=== PATIENT | female | born 1955 | race Caucasian/White ===

== ENCOUNTER 2019-08-04 13:49 | Outpatient (CLI) | payer OTHER, SELFPAY ==
[2019-08-04 14:29] LABS: Abs Immature Grans 0.01 k/cumm (0.0-0.09); Absolute Basophil Count 0.03 k/cumm (0.0-0.2); Absolute Eosinophil Count 0.15 k/cumm (0.0-0.7); Absolute Lymphocyte Count 0.88 k/cumm (1.2-3.4); Absolute Neutrophil Count 3.23 k/cumm (1.2-6.7); Basophils % 0.6; Eosinophils % 3.2; HGB 13.4 g/dL (12.0-15.5); Immature Grans % 0.2 %; Lymphocytes % 18.7; Mean Corp. HGB Concentration 32.7 g/dL (32.0-36.0); Mean Corpuscular Hemoglobin 30.5 pg (27.0-33.0); Mean Corpuscular Volume 93.4 fL (80-95); Mean Platelet Volume 10.3 fL (8.0-11.0); Monocytes % 8.5; Neutrophils % 68.8; Platelet Count 207 x1000/uL (130-400); RBC 4.39 m/cumm (4.00-5.20); RBC Distribution Width 13.1 % (11.7-14.6)
[2019-08-04 15:33] LABS: ALT 25 U/L (14-59); AST 23 U/L (15-37); Albumin 3.6 g/dL (3.4-5.0); Alkaline Phosphatase 75 U/L (46-116); Anion Gap 6.5 mmol/L (3-11); BUN 22 mg/dL (7-18); Bilirubin, Total 0.5 mg/dL (0.2-1.0); CO2 30.5 mmol/L (21.0-32.0); Calcium 8.4 mg/dL (8.5-10.1); Chloride 105 mmol/L (98-107); Ferritin 64 ng/mL (8-252); Glucose 91 mg/dL (74-106); Magnesium 2.2 mg/dL (1.8-2.4); Potassium 4.5 mmol/L (3.5-5.1); Sodium 142 mmol/L (136-145); Vitamin B12 816 pg/mL (193-986)
[2019-08-04 15:35] LABS: Folate > 20.0 ng/mL (8.6-20.0)
[2019-08-04 21:58] LABS: Ionized Calcium 1.09 mmol/L (1.12-1.32)
[2019-08-07 17:58] LABS: 25-Hydroxy D Total 69 ng/mL; 25-Hydroxy D2 <4.0 ng/mL; 25-Hydroxy D3 69 ng/mL
== END 2019-08-04 14:09 ==
PROVIDERS: Visit Provider Naturopath
DX: M81.0 Age-related osteoporosis without current pathological fracture (principal); D72.819 Decreased white blood cell count, unspecified; G25.81 Restless legs syndrome
CPT/HCPCS: 36415; 80053; 82306; 82330; 82607; 82728; 82746; 83735; 84597; 85025